=== PATIENT | male | born 1950 | race Caucasian/White ===

== ENCOUNTER 2025-02-13 14:04 | Outpatient (CLI) | payer OTHER, SELFPAY | END 2025-02-13 14:05 | disposition home or self-care (01) | LOC: WOUND 14:09 | PROVIDERS: Visit Provider Physician Assistant Surgical | DX: L97.322 Non-pressure chronic ulcer of left ankle with fat layer exposed (principal); B95.62 Methicillin resistant Staphylococcus aureus infection as the cause of diseases classified elsewhere; T81.49XA Infection following a procedure, other surgical site, initial encounter; Z96.662 Presence of left artificial ankle joint | CPT/HCPCS: 11042; 11045; G0463 ==